=== PATIENT | female | born 1985 | race Caucasian/White ===

== ENCOUNTER 2016-08-25 16:52 | Emergency (ER) | payer SELFPAY ==
[~2016-08-25] VITALS: Ht 167.6 cm; Wt 60.0 kg
[~2016-08-25 16:52] MED LIST: CEPH500C3 PO; RANI150 PO; ZOFR4TAB3 SL
[2016-08-25] MEDS ORDERED: IBUPROFEN 800 MG TAB PO ONE (17:15)
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
[2016-08-25 17:24] VITALS: BP 127/77; PULSE 117; RESP 16; TEMP 98.7; O2SAT 100
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
[2016-08-25 18:51] LABS: AUTOMATED NEUTROPHIL # 5.4 TH/MM3 (1.8-7.7); BASOPHIL % 0.2 % (0.0-2.0); HEMATOCRIT 38.4 % (35.0-46.0); HEMO FLAGS DIFF FINAL; LYMPH % 26.2 % (9.0-44.0); MEAN CELL VOLUME 102.3 FL (80.0-100.0); MEAN CORPUSCULAR HEMOGLOBIN 35.2 PG (27.0-34.0); MEAN CORPUSCULAR HGB CONC 34.5 % (32.0-36.0); MONO % 3.7 % (0.0-8.0); NEUT % 69.9 % (16.0-70.0); PLATELET COUNT 294 TH/MM3 (150-450); RED BLOOD COUNT 3.75 MIL/MM3 (4.00-5.30); RED CELL DISTRIBUTION WIDTH 13.2 % (11.6-17.2); WHITE BLOOD COUNT 7.7 TH/MM3 (4.0-11.0)
[2016-08-25 19:20] LABS: BACTERIA, URINE MANY /hpf; BLOOD, URINE SMALL (NEG); COMMENT (UR) CULTURE INDICATED; CULTURE IF INDICATED CULTURE INDICATED; GLUCOSE,URINE NEG (NEG); KETONE, URINE NEG (NEG); MUCUS URINE FEW /lpf (OCC); NITRITE,URINE NEG (NEG); PH, URINE 5.5 (5.0-8.5); SQUAMOUS EPITHELIAL CELL URINE <1 /hpf (0-5); URINE COLOR YELLOW (YELLW/STRAW)
[2016-08-25 19:25] LABS: BICARBONATE 22.8 MEQ/L (21.0-32.0); POTASSIUM 3.7 MEQ/L (3.5-5.1)
[2016-08-25] MEDS ORDERED: cefTRIAXone INJ 1,000 MG in SODIUM CHLORIDE 0.9% INJ 100 ML IV ONE (19:45)
[2016-08-25 20:19] VITALS: BP 122/68; PULSE 89; RESP 20; O2SAT 99
[2016-08-25] MEDS ORDERED: IOHEXOL 350 MG/ML 10 ML VIAL (for RAD DIAG) IV ONE (21:11)
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
[2016-08-25] MEDS ORDERED: CEPH-460 PO (21:36)
[2016-08-25] MEDS ORDERED: KETOROLAC TROMETHAMINE 30 MG/ML (IVP) VIAL IV PUSH ONE (21:45)
[2016-08-25] MEDS ORDERED: SODIUM CHLOR 0.9% 1000 ML INJ 1,000 ML IV ONE (21:45)
== END 2016-08-25 22:14 | disposition home or self-care (01) ==
LOC: NEPE 16:52
DX: S00.83XA Contusion of other part of head, initial encounter (principal); S09.90XA Unspecified injury of head, initial encounter; S00.81XA Abrasion of other part of head, initial encounter; N39.0 Urinary tract infection, site not specified; F10.120 Alcohol abuse with intoxication, uncomplicated; B96.20 Unspecified Escherichia coli [E. coli] as the cause of diseases classified elsewhere; F17.210 Nicotine dependence, cigarettes, uncomplicated
CPT/HCPCS: 70450; 70486; 71260; 72125; 74177; 80048; 80307; 81001; 84703; 85025; 87077; 87086; 87186; 96365; 96366; 96375; 99284; J0696; J1885; J7030; Q9967